=== PATIENT | female | born 1985 | race Caucasian/White ===

== ENCOUNTER 2020-09-30 19:53 | Emergency (ER) | payer MEDICAID, OTHER ==
[~2020-09-30] VITALS: Ht 172.7 cm; Wt 64.4 kg
--- NOTE | 2020-09-30 20:02 | NUR ---
PT AAOX4. C/O WEAKNESS AND FEELING TIRED S/P TAKING 2 CAPS OF OXYELITE PRO @ 1400. PT PLACED IN BED 10 ON GRINDER AND PULSE OX. VSS. PT APPEARS TO BE CLAMY, BG CHECKED 123, MD AWARE. LINE ESTABLISHED LAC 20G, BLOOD DRAWN, AND SENT TO LAB. AT BEDSIDE FOR EVAL. AWAITING OTHER ORDERS.
[2020-09-30 20:29] LABS: BASOPHILS % (AUTO) 0.2 % (0.0-2.0); EOSINOPHILS % (AUTO) 0.1 % (0.0-6.0); HEMATOCRIT 44 % (33-45); HEMOGLOBIN 14.5 g/dL (11.5-14.8); LYMPHOCYTES # (AUTO) 1.6 /CMM (0.8-4.8); LYMPHOCYTES % (AUTO) 11.6 % (20.0-44.0); MEAN CORPUSCULAR HGB CONC 33 g/dl (31.0-36.0); MEAN CORPUSCULAR VOLUME 95 fL (82-100); MONOCYTES # (AUTO) 0.4 /CMM (0.1-1.30); MONOCYTES % (AUTO) 3.2 % (2.0-12.0); NEUTROPHILS # (AUTO) 11.4 /CMM (1.8-8.9); NEUTROPHILS % (AUTO) 84.9 % (43.0-81.0); PLATELET COUNT (AUTO) 273 /CMM (150-450); RED BLOOD CELL COUNT(AUTO) 4.64 MIL/uL (4.0-5.2); WHITE BLOOD COUNT (AUTO) 13.4 K/uL (4.3-11.0)
[2020-09-30] MEDS ORDERED: IV NS 0.9% 1,000 ML BAG IV ONE (20:30)
--- NOTE | 2020-09-30 20:30 | NUR ---
LEOS STRAIGHT CATH, URINE COLLECTED, SENT TO LAB.
[2020-09-30 20:36] LABS: CALCIUM, SERUM 9.3 mg/dL (8.5-10.1); CREATININE 0.8 mg/dL (0.6-1.3); POTASSIUM 3.2 mmol/L (3.5-5.1)
[2020-09-30 20:43] LABS: ALBUMIN 4.1 g/dL (3.4-5.0); BILIRUBIN,DIRECT 0.1 mg/dL (0.0-0.2); BILIRUBIN,TOTAL 0.4 mg/dL (0.2-1.0); TOTAL PROTEIN, SERUM 7.9 g/dL (6.4-8.2)
[2020-09-30 20:47] LABS: ALCOHOL, BLOOD < 3 mg/dL (0-0); MAGNESIUM 1.6 mg/dL (1.8-2.4)
[2020-09-30 20:56] LABS: BILIRUBIN,URINE Negative (NEGATIVE); BLOOD, URINE Negative Ery/uL (NEGATIVE); COLOR,URINE Yellow (YELLOW); LEUKOCYTE ESTERASE ,URINE Negative (NEGATIVE); NITRITE, URINE Negative (NEGATIVE); PH,URINE 7.5 (5.0-8.0); PROTEIN,URINE Negative (NEGATIVE); UGLUCOSE Negative (NEGATIVE); UROBILINOGEN,URINE 0.2 EU/dL (0.2)
--- NOTE | 2020-09-30 20:56 | NUR ---
PT RESTING COMFORTABLY. VSS. PROVIDED WITH MORE BLANKETS.
[2020-09-30 21:09] LABS: BACTERIA,URINE None seen /HPF (None Seen); RBC,URINE 0-2 /HPF (0-2); SQUAMOUS EPITHELIAL CELL,UR Few /HPF (None Seen); WBC,URINE 0-2 /HPF (0-3)
[2020-09-30] MEDS ORDERED: POTASSIUM CHLORIDE 20 MEQ TAB.PRT.SR PO ONE ×2 (21:13→21:30)
[2020-09-30] MEDS ORDERED: MAGNESIUM OXIDE 400 MG TABLET ONE (21:30)
[2020-09-30] MEDS ORDERED: MAGNESIUM OXIDE 400 MG TABLET PO ONE (21:30)
[2020-09-30] MEDS ORDERED: IV NS 0.9% 1,000 ML IV ONE (21:30)
[2020-09-30 21:48] LABS: CREATINE KINASE, TOTAL 111 U/L (26-192)
--- NOTE | 2020-09-30 21:55 | NUR ---
PT AMBULATED THROUGH THE ED WITH STEADY GAIT. VSS.
--- NOTE | 2020-09-30 21:55 | NUR ---
IV removed. Catheter intact and site benign. Pressure and 4x4 applied to site. No bleeding noted.
[2020-09-30 22:13] VITALS: BP 128/69
--- NOTE | 2020-09-30 22:13 | NUR ---
Patient discharged to home in stable condition. Written and verbal after care instructions given. Patient verbalizes understanding of instruction. PT ambulated out of ED. VSS.
== END 2020-09-30 22:14 | disposition home or self-care (01) ==
LOC: ER 19:56
DX: F45.8 Other somatoform disorders (principal); F41.9 Anxiety disorder, unspecified; E86.0 Dehydration; E87.6 Hypokalemia; E83.42 Hypomagnesemia; R94.31 Abnormal electrocardiogram [ECG] [EKG]; Z98.890 Other specified postprocedural states
CPT/HCPCS: 36415; 80048; 80076; 80307; 80320; 81001; 82550; 82962; 83690; 83735; 84484; 84702; 85025; 93005; 96360; 96361; 99284; J7030 ×2; 81000-TC; G0480